=== PATIENT | female | born 1985 | race Caucasian/White ===

== ENCOUNTER 2020-12-05 18:40 | Emergency (ER) | payer OTHER ==
[~2020-12-05 18:40] MED LIST: CLINDAMYCIN HC150 MG PO; DECADRON6 MG PO; LODINE CAP 300300 MG PO; NAPROSYN500 MG PO; PROVENTIL HFA6.7 GM INH
[2020-12-05] MEDS ORDERED: CIPRO HC OTIC S10 ML EARRT (19:48)
== END 2020-12-05 19:53 | disposition home or self-care (01) ==
LOC: ER1 18:40
DX: H60.91 Unspecified otitis externa, right ear (principal); F17.290 Nicotine dependence, other tobacco product, uncomplicated; Z79.899 Other long term (current) drug therapy; Z88.0 Allergy status to penicillin; Z88.5 Allergy status to narcotic agent
CPT/HCPCS: 99282